=== PATIENT | male | born 1995 | race Hispanic/Latino ===

== ENCOUNTER 2024-02-19 15:40 | Inpatient (IN) | payer SELFPAY ==
[~2024-02-19 15:40] MED LIST: Iopamidol-370 76% 500 ML MDV (1 ML CHARGE) ONE
[2024-02-19] MEDS ORDERED: CEFAZOLIN 2 GM VIAL ONE (15:44)
[2024-02-19] MEDS ORDERED: Boostrix 0.5 ML (Tdap) VIAL (>/=7 yrs of age) ONE (15:46)
[2024-02-19 16:14] LABS: #Basophils 0.04 10x3/uL (0.0-0.2); %Basophils 0.2 % (0.0-1.0); %Eosinophils 0.4 % (0.0-10.0); %Lymphocytes 8.3 % (21.0-51.0); %Monocytes 3.6 % (0.0-10.0); %Neutrophils 86.4 % (42.0-75.0); Hematocrit 47.4 % (42.0-52.0); Hemoglobin 16.5 g/dL (14.0-18.0); Mean Corpuscular HGB CONC 34.8 g/dL (32.0-36.0); Mean Corpuscular Hemoglobin 29.6 pg (27.0-31.0); Mean Corpuscular Volume 85.1 fL (78.0-98.0); Mean Platelet Volume 11.3 fL (7.4-10.4); Platelet Count 294 10x3/uL (130-400); RBC Distribution Width 12.3 % (11.5-14.5); Red Blood Cell (RBC) Count 5.57 mill/uL (4.70-6.10)
[2024-02-19 16:32] LABS: ALT (SGPT) 24 U/L (8-55); AST (SGOT) 31 U/L (5-34); Albumin 4.5 g/dL (3.5-5.0); Alkaline Phosphatase 120 U/L (40-110); Anion Gap 17 mmol/L (10-20); BUN (Urea Nitrogen) 12 mg/dL (8.9-20.6); Bilirubin, Total 0.8 mg/dL (0.2-1.2); Calc. Creatinine Clearance 0 mL/min (70-130); Calcium 9.6 mg/dL (7.8-10.44); Carbon Dioxide 20 mmol/L (22-29); Chloride 107 mmol/L (98-107); Estimated GFR 94; Globulin 3.1 g/dL (2.4-3.5); Glucose 155 mg/dL (70-105); Magnesium 2.4 mg/dL (1.6-2.6); Protein, Total 7.6 g/dL (6.0-8.3); Sodium 140 mmol/L (136-145)
[2024-02-19 16:34] LABS: Acetaminophen Less than 10 mcg/mL (Less than 10); Alcohol Less than 10.0 mg/dL (Less than 10); Salicylate Less than 8.0 mg/dL (Less than 8.0)
[2024-02-19 16:39] LABS: Troponin I 0.293 ng/mL (< 0.028)
[2024-02-19] MEDS ORDERED: Ondansetron PF 4 MG/2 ML Vial ONE (16:56)
[2024-02-19] MEDS ORDERED: Ketorolac Tromethamine 30 MG (1 mL) VIAL ONE (16:56)
[2024-02-19] MEDS ORDERED: Morphine 4 MG/ML VIAL ONE (16:57)
[2024-02-19] MEDS ORDERED: Ondansetron PF 4 MG/2 ML Vial IVP PRN (18:01)
[2024-02-19] MEDS ORDERED: Glucagon 1 MG/ML KIT IM PRN (18:01)
[2024-02-19] MEDS ORDERED: traMADol HCl 50 MG TAB PO PRN (18:01)
[2024-02-19] MEDS ORDERED: Dextrose 5% in Water 1,000 ML IV PRN (18:01)
[2024-02-19] MEDS ORDERED: Dextrose 50% Abboject 50 ML SYRINGE SLOW IVP PRN (18:01)
[2024-02-19] MEDS ORDERED: Ondansetron ODT 4 MG TAB PO PRN (18:01)
[2024-02-19] MEDS ORDERED: hydrALAZINE 20 MG/ML VIAL SLOW IVP PRN (18:01)
[2024-02-19] MEDS ORDERED: Acetaminophen 325 MG TAB PO PRN (18:01)
[2024-02-19 19:40] VITALS: BMI 26.7
[2024-02-19] MEDS: TETANUS, DIPHTHERIA TOX,ADULT (TDVAX) 0.5 ML VIAL IM ONE (20:04)
[2024-02-19 22:29] LABS: Troponin I 4.604 ng/mL (< 0.028)
[2024-02-19] MEDS: HYDROcodone/Acetaminophen 5/325 mg Tablet PO PRN (23:20)
[2024-02-20 03:51] LABS: #Basophils 0.04 10x3/uL (0.0-0.2); %Basophils 0.4 % (0.0-1.0); %Eosinophils 2.3 % (0.0-10.0); %Lymphocytes 26.9 % (21.0-51.0); %Neutrophils 61.1 % (42.0-75.0); Hematocrit 39.4 % (42.0-52.0); Hemoglobin 13.6 g/dL (14.0-18.0); Mean Corpuscular HGB CONC 34.5 g/dL (32.0-36.0); Mean Corpuscular Hemoglobin 29.6 pg (27.0-31.0); Mean Corpuscular Volume 85.8 fL (78.0-98.0); Mean Platelet Volume 11.3 fL (7.4-10.4); Platelet Count 250 10x3/uL (130-400); RBC Distribution Width 12.6 % (11.5-14.5); Red Blood Cell (RBC) Count 4.59 mill/uL (4.70-6.10)
[2024-02-20 04:06] LABS: Anion Gap 15 mmol/L (10-20); BUN (Urea Nitrogen) 8 mg/dL (8.9-20.6); Calc. Creatinine Clearance 141 mL/min (70-130); Calcium 8.9 mg/dL (7.8-10.44); Carbon Dioxide 22 mmol/L (22-29); Chloride 108 mmol/L (98-107); Estimated GFR 123; Glucose 90 mg/dL (70-105); Potassium 3.6 mmol/L (3.5-5.1); Sodium 141 mmol/L (136-145)
[2024-02-20 07:56] LABS: Troponin I 1.139 ng/mL (< 0.028)
[2024-02-20] MEDS: Lidocaine 4% Patch TD SCH (08:10)
[2024-02-20] MEDS: Methocarbamol 500 MG TAB PO PRN (16:30)
[2024-02-20] MEDS: Transdermal Patch Removal TOP SCH (16:31)
[2024-02-21 12:04] VITALS: BP 118/56; TEMP 97.7
== END 2024-02-21 16:30 | disposition home or self-care (01) | DRG 964 ==
LOC: ERS 15:40 → 2SW 18:01
PROVIDERS: ADMIT Surgery; ATTEND Surgery
DX: S28.0XXA Crushed chest, initial encounter (principal); S22.42XA Multiple fractures of ribs, left side, initial encounter for closed fracture; S26.91XA Contusion of heart, unspecified with or without hemopericardium, initial encounter; S27.0XXA Traumatic pneumothorax, initial encounter; W20.8XXA Other cause of strike by thrown, projected or falling object, initial encounter; Z79.899 Other long term (current) drug therapy; F17.210 Nicotine dependence, cigarettes, uncomplicated; S40.012A Contusion of left shoulder, initial encounter; S80.02XA Contusion of left knee, initial encounter
CPT/HCPCS: 12011; 36415; 70450; 70486; 71045; 71260; 72125; 74177; 80048; 80053; 80307; 83735; 84484; 85025; 90471; 90715; 93005; 93306; 96374; 96375; G0390; J1885; J2272; J2405; Q9967